=== PATIENT | male | born 1980 | race African-American/Black ===

== ENCOUNTER 2023-02-28 11:13 | Emergency (ER) | payer MEDICAID, OTHER ==
[~2023-02-28] VITALS: Ht 175.3 cm; Wt 82.0 kg
[2023-02-28 11:16] VITALS: BP 173/116
[2023-02-28] MEDS ORDERED: ONDANSETRON 4MG ODT PO STA (11:24)
== END 2023-02-28 12:44 | disposition left against medical advice (07) ==
LOC: ER 11:50
DX: T50.901A Poisoning by unspecified drugs, medicaments and biological substances, accidental (unintentional), initial encounter (principal); Y92.9 Unspecified place or not applicable
CPT/HCPCS: 99283

== ENCOUNTER 2023-05-25 18:14 | Emergency (ER) | payer OTHER ==
[~2023-05-25] VITALS: Ht 172.7 cm; Wt 73.0 kg
[2023-05-25 18:30] VITALS: BP 110/70; PULSE 70; RESP 18; O2SAT 98
[2023-05-25] MEDS ORDERED: ACETAMINOPHEN 325MG TABLET PO ONE (18:30)
[2023-05-25 18:36] VITALS: TEMP 98.5
[2023-05-25] MEDS ORDERED: CEPH500T MT (20:31)
[2023-05-25] MEDS ORDERED: MUPI1OIN4 TP (20:31)
[2023-05-26] MEDS ORDERED: IBUP-2030 PO (06:16)
== END 2023-05-25 20:57 | disposition home or self-care (01) ==
LOC: ER 18:14
DX: S99.922A Unspecified injury of left foot, initial encounter (principal); F10.129 Alcohol abuse with intoxication, unspecified; W22.8XXA Striking against or struck by other objects, initial encounter; Y93.89 Activity, other specified; Y92.89 Other specified places as the place of occurrence of the external cause; Y99.8 Other external cause status; Y90.0 Blood alcohol level of less than 20 mg/100 ml
CPT/HCPCS: 73630; 99283

== ENCOUNTER 2023-05-26 02:46 | Emergency (ER) | payer OTHER ==
[~2023-05-26] VITALS: Ht 170.2 cm; Wt 70.0 kg
[2023-05-26 03:37] VITALS: BP 159/102; O2SAT 100
[2023-05-26] MEDS ORDERED: ACETAMINOPHEN 325MG TABLET PO ONE (04:30)
[2023-05-26] MEDS ORDERED: IBUP-2030 PO (06:16)
[2023-05-26 06:40] VITALS: PULSE 79; RESP 16; TEMP 98.7
== END 2023-05-26 06:40 | disposition home or self-care (01) ==
LOC: ER 02:46
DX: M79.672 Pain in left foot (principal)
CPT/HCPCS: 73630; 93971; 99284

== ENCOUNTER 2023-07-07 08:47 | Emergency (ER) | payer OTHER ==
[~2023-07-07] VITALS: Ht 167.6 cm; Wt 68.0 kg
[~2023-07-07 08:47] MED LIST: IBUP-2030 PO
[2023-07-07 08:59] VITALS: O2SAT 99
[2023-07-07 09:52] VITALS: BP 136/78; PULSE 84; RESP 19; TEMP 97.9
== END 2023-07-07 09:53 ==
LOC: ER 08:47
DX: M79.671 Pain in right foot (principal)
CPT/HCPCS: 73620; 99283